=== PATIENT | female | born 1965 | race Two or more races ===

== ENCOUNTER 2018-06-27 10:25 | Day surgery (SDC) | payer OTHER | END 2018-06-27 18:25 | disposition home or self-care (01) | LOC: AMB-ENDOS 10:25 | DX: K57.32 Diverticulitis of large intestine without perforation or abscess without bleeding (principal); K62.4 Stenosis of anus and rectum; K64.1 Second degree hemorrhoids; Z12.11 Encounter for screening for malignant neoplasm of colon ==